=== PATIENT | male | born 1995 | race American Indian/Alaskan Native ===

== ENCOUNTER 2018-01-16 08:16 | Emergency (ER) | payer OTHER ==
[2018-01-16 08:24] VITALS: BMI 21.5
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
[2018-01-16 08:46] VITALS: BP 129/65; PULSE 86; RESP 18; TEMP 97.2; O2SAT 99
[2018-01-16] MEDS ORDERED: TDAP Vaccine 0.5 mL Syr IM ONE (08:47)
[2018-01-16] MEDS: Oxycodone/Acetaminophen 5/325 mg Tab PO STA ×2 (08:58→09:08)
== END 2018-01-16 09:20 | disposition home or self-care (01) ==
LOC: ED 08:16
DX: T22.211A Burn of second degree of right forearm, initial encounter (principal); X10.0XXA Contact with hot drinks, initial encounter; Y92.89 Other specified places as the place of occurrence of the external cause; Z23 Encounter for immunization
CPT/HCPCS: 16020; 90471; 90715; 96372; 99284; J1885

== ENCOUNTER 2018-01-18 12:24 | Emergency (ER) | payer OTHER ==
[2018-01-18 12:27] VITALS: BMI 21.1
[2018-01-18 12:32] VITALS: BP 109/69; PULSE 75; RESP 18; TEMP 98.5; O2SAT 95
== END 2018-01-18 12:40 | disposition left against medical advice (07) ==
LOC: ED 12:24
DX: Z02.89 Encounter for other administrative examinations (principal); Z51.89 Encounter for other specified aftercare